=== PATIENT | female | born 1995 | race African-American/Black ===

== ENCOUNTER 2016-11-15 23:26 | Emergency (ER) | payer MEDICAID ==
[~2016-11-15] VITALS: Ht 160 cm; Wt 49.8 kg
[2016-11-16 00:55] VITALS: BP 124/92
[2016-11-16 01:25] LABS: HCG SCREEN NEGATIVE
== END 2016-11-16 02:26 | disposition home or self-care (01) ==
LOC: ER 11-16 01:33
DX: J01.90 Acute sinusitis, unspecified (principal); Z91.048 Other nonmedicinal substance allergy status
CPT/HCPCS: 71010; 84703; 99283; Z7610